=== PATIENT | female | born 1955 | race Caucasian/White ===

== ENCOUNTER 2021-05-09 10:56 | Emergency (ER) | payer MEDICARE, OTHER ==
[2021-05-09 11:23] VITALS: RESP 16; TEMP 97
--- NOTE | 2021-05-09 11:32 | ED ---
General Adult HPI - General Chief complaint: Altered Mental Status Stated complaint: Mental health Time Seen by Provider: 05/09/21 10:58 Source: patient, EMS, RN notes reviewed Mode of arrival: EMS Limitations: no limitations - History of Present Illness Initial comments: This a 65-year-old female presents emergency Department via EMS for psychiatric evaluation. Patient has called 911 several times this week in which police have responded for hallucinations, false complaints. Patient states she called 911 today because her cousin was having a baby in her house. EMS and police arrived and found had no real 7 house. Patient denies any suicidal or homicidal no drug use or use. Patient denies any physical complaints. - Related Data Home Medications Medication Instructions Recorded Confirmed Atorvastatin Calcium [Lipitor] 40 mg PO HS@2100 05/09/21 05/09/21 Brexpiprazole [Rexulti] 2 mg PO HS@2100 05/09/21 05/09/21 Calcium Carbonate/Vitamin D3 1 tab PO BID 05/09/21 05/09/21 [Calcium 600 mg-D3 20 mcg (800 unit)] Carbidopa-Levodopa 25-100 mg 1 tab PO TID@0800,1200,1600 05/09/21 05/09/21 [Sinemet 25-100] Carbidopa-Levodopa 25-100 mg 2 tab PO HS@209905/09/21 05/09/21 [Sinemet 25-100] Clopidogrel Bisulfate [Plavix] 75 mg PO DAILY 05/09/21 05/09/21 DULoxetine HCL [Cymbalta] 120 mg PO DAILY 05/09/21 05/09/21 Ferrous Sulfate [Feosol] 325 mg PO DAILY@1200 05/09/21 05/09/21 Fluticasone Nasal [place] [Flonase 1 spray EA NOSTRIL DAILY PRN 05/09/21 05/09/21 Nasal [place]] Gabapentin [Neurontin] 400 mg PO BID 05/09/21 05/09/21 Loratadine [Claritin] 10 mg PO DAILY 05/09/21 05/09/21 Magnesium Oxide 400 mg PO DAILY@1200 05/09/21 05/09/21 Omeprazole 40 mg PO DAILY 05/09/21 05/09/21 Oxybutynin Chloride 5 mg PO BID 05/09/21 05/09/21 amantadine HCL [Amantadine] 100 mg PO BID 05/09/21 05/09/21 clonazePAM 0.5 mg PO HS 05/09/21 05/09/21 Allergies Allergy/AdvReac Type Severity Reaction Status Date / Time azithromycin Allergy Rash/Hives Verified 05/09/21 11:49 bee venom protein (honey bee) Allergy Swelling Verified 05/09/21 11:49 cephalexin [From Keflex] Allergy Rash/Hives Verified 05/09/21 11:49 codeine Allergy Rash/Hives Verified 05/09/21 11:49 Penicillins Allergy Rash/Hives Verified 05/09/21 11:49 Sulfa (Sulfonamide Allergy Rash/Hives Verified 05/09/21 11:49 Antibiotics) latex AdvReac Rash/Hives Verified 05/09/21 11:49 Review of Systems ROS Statement: Those systems with pertinent positive or pertinent negative responses have been documented in the HPI. ROS Other: All systems not noted in ROS Statement are negative. Past Medical History Past Medical History: Hypertension Additional Past Medical History / Comment(s): parkinsons History of Any Multi-Drug Resistant Organisms: None Reported Past Surgical History: Adenoidectomy, Appendectomy, Cholecystectomy, Hysterectomy, Tonsillectomy Past Psychological History: No Psychological Hx Reported Smoking Status: Never smoker Past Alcohol Use History: None Reported Past Drug Use History: None Reported General Exam Limitations: no limitations General appearance: alert, in no apparent distress Head exam: Present: atraumatic, normocephalic, normal inspection Neck exam: Present: normal inspection, full ROM. Absent: tenderness, meningismus, lymphadenopathy Respiratory exam: Present: normal lung sounds bilaterally. Absent: respiratory distress, wheezes, rales, rhonchi, stridor Cardiovascular Exam: Present: regular rate, normal rhythm, normal heart sounds. Absent: systolic murmur, diastolic murmur, rubs, gallop, clicks Neurological exam: Present: alert, oriented X3 Skin exam: Present: warm, dry, intact, normal color. Absent: rash Course Vital Signs 05/09/21 11:16 Temperature 97 F L Pulse Rate 71 Respiratory 16 Rate Blood Pressure 121/53 O2 Sat by Pulse 95 Oximetry Medical Decision Making - Medical Decision Making Patient was evaluated and case discussed with psychiatrist. Patient is involved with with [facility] team. Patient will be followed up outpatient. Patient is not suicidal or homicidal. Patient was discharged in stable condition. - Lab Data Result diagrams: 05/09/21 11:37 05/09/21 11:37 Lab Results 05/09/21 05/09/21 05/09/21 Range/Units 11:37 11:37 12:17 WBC 3.7 L (3.8-10.6) k/uL RBC 4.59 (3.80-5.40) m/uL Hgb 13.8 (11.4-16.0) gm/dL Hct 43.1 (34.0-46.0) % MCV 93.9 (80.0-100.0) fL MCH 30.1 (25.0-35.0) pg MCHC 32.1 (31.0-37.0) g/dL RDW 14.6 (11.5-15.5) % Plt Count 136 L (150-450) k/uL MPV 9.2 Neutrophils % 66 % Lymphocytes % 18 % Monocytes % 10 % Eosinophils % 2 % Basophils % 1 % Neutrophils # 2.4 (1.3-7.7) k/uL Lymphocytes # 0.7 L (1.0-4.8) k/uL Monocytes # 0.4 (0-1.0) k/uL Eosinophils # 0.1 (0-0.7) k/uL Basophils # 0.0 (0-0.2) k/uL Sodium 143 (137-145) mmol/L Potassium 4.1 (3.5-5.1) mmol/L Chloride 107 (98-107) mmol/L Carbon Dioxide 30 (22-30) mmol/L Anion Gap 6 mmol/L BUN 19 H (7-17) mg/dL Creatinine 1.01 (0.52-1.04) mg/dL Est GFR (CKD-EPI)AfAm 67 (>60 ml/min/1.73 sqM) Est GFR (CKD-EPI)NonAf 58 (>60 ml/min/1.73 sqM) Glucose 97 (74-99) mg/dL Calcium 9.5 (8.4-10.2) mg/dL Total Bilirubin 0.7 (0.2-1.3) mg/dL AST 32 (14-36) U/L ALT 11 (4-34) U/L Alkaline Phosphatase 84 (38-126) U/L Total Protein 6.2 L (6.3-8.2) g/dL Albumin 3.6 (3.5-5.0) g/dL TSH 1.780 (0.465-4.680) mIU/L Urine Color Yellow Urine Appearance Clear (Clear) Urine pH 6.0 (5.0-8.0) Ur Specific [place] 1.024 (1.001-1.035) Urine Protein Trace H (Negative) Urine Glucose (UA) Negative (Negative) Urine Ketones 1+ H (Negative) Urine Blood Negative (Negative) Urine Nitrite Negative (Negative) Urine Bilirubin Negative (Negative) Urine Urobilinogen 2.0 (<2.0) mg/dL Ur Leukocyte Esterase Negative (Negative) Urine Opiates Screen Not Detected (NotDetected) Ur Oxycodone Screen Not Detected (NotDetected) Urine Methadone Screen Not Detected (NotDetected) Ur Propoxyphene Screen Not Detected (NotDetected) Ur Barbiturates Screen Not Detected (NotDetected) U Tricyclic Antidepress Not Detected (NotDetected) Ur Phencyclidine Scrn Not Detected (NotDetected) Ur Amphetamines Screen Not Detected (NotDetected) U Methamphetamines Scrn Not Detected (NotDetected) U Benzodiazepines Scrn Not Detected (NotDetected) Urine Cocaine Screen Not Detected (NotDetected) U Marijuana (THC) Screen Not Detected (NotDetected) Disposition Clinical Impression: Hallucinations, Parkinsons Disposition: HOME SELF-CARE Condition: Stable Instructions (If sedation given, give patient instructions): Hallucinations (ED) Additional Instructions: Please return to the Emergency Department if symptoms worsen or any other concerns. Is patient prescribed a controlled substance at d/c from ED?: No Referrals: Shamar Camarena MD [Primary Care Provider] - 1-2 days Time of Disposition: 14:52
[2021-05-09 11:55] LABS: Basophils % (A) 1 %; Eosinophils # (A) 0.1 k/uL (0-0.7); Eosinophils % (A) 2 %; HCT 43.1 % (34.0-46.0); HGB 13.8 gm/dL (11.4-16.0); Lymphocytes # (A) 0.7 k/uL (1.0-4.8); Lymphocytes % (A) 18 %; MCH 30.1 pg (25.0-35.0); MCHC 32.1 g/dL (31.0-37.0); MCV 93.9 fL (80.0-100.0); Mean Platelet Volume 9.2; Monocytes # (A) 0.4 k/uL (0-1.0); Monocytes % (A) 10 %; Neutrophils # (A) 2.4 k/uL (1.3-7.7); Neutrophils % (A) 66 %; Platelet Count 136 k/uL (150-450); RBC 4.59 m/uL (3.80-5.40); RDW 14.6 % (11.5-15.5); WBC 3.7 k/uL (3.8-10.6)
[2021-05-09 12:12] LABS: Albumin 3.6 g/dL (3.5-5.0); Calcium 9.5 mg/dL (8.4-10.2); Potassium 4.1 mmol/L (3.5-5.1); Total Bilirubin 0.7 mg/dL (0.2-1.3); Total Protein 6.2 g/dL (6.3-8.2)
[2021-05-09 13:37] LABS: Appearance,Urine Clear (Clear); Bilirubin,Urine Negative (Negative); Blood,Urine Negative (Negative); Color,Urine Yellow; Glucose,Urine (UA) Negative (Negative); Ketones,Urine 1+ (Negative); Leukocyte Esterase,Urine Negative (Negative); Nitrite,Urine Negative (Negative); Protein,Urine Trace (Negative); Specific Gravity,Urine 1.024 (1.001-1.035)
[2021-05-09 13:48] LABS: Amphetamine Screen,Urine Not Detected (NotDetected); Barbiturate Screen,Urine Not Detected (NotDetected); Benzodiazepines Screen,Urine Not Detected (NotDetected); Cocaine Screen,Urine Not Detected (NotDetected); Methadone Screen, Urine Not Detected (NotDetected); Opiate Screen,Urine Not Detected (NotDetected); Oxycodone Screen, Urine Not Detected (NotDetected); Phencyclidine Screen,Urine Not Detected (NotDetected); Tricyclic Antidepressant,Urine Not Detected (NotDetected); Urn Cannabinoid Scrn Not Detected (NotDetected)
[2021-05-09 16:40] VITALS: BP 119/75; PULSE 87
== END 2021-05-09 16:51 | disposition home or self-care (01) ==
LOC: EC 10:56
DX: G20 Parkinson's disease (principal); R44.3 Hallucinations, unspecified; I10 Essential (primary) hypertension; Z88.0 Allergy status to penicillin
CPT/HCPCS: 36415; 80053; 80306; 81003; 82075; 84443; 85025; 99285

== ENCOUNTER → 2021-07-20 | Outpatient (CLI) | payer MEDICARE, OTHER ==
[2021-07-20 10:45] VITALS: BP 128/77; PULSE 73; RESP 18; TEMP 97.9
--- NOTE | 2021-07-20 11:16 | P.PAINCN ---
History of Present Illness - Reason for Consult Consult date: 07/20/21 - History of Present Illness This 66 years old female with a chronic history of severe low back pain, started 2 years ago the pain is constant increases with any activity interfere with the quality of life, she denies any initiating event, no history of trauma or heavy lifting,no history of falling , the pain is constant localized in the low back area with radiation to the posterior aspect of the lower extremity bilaterally, she denies any motor or sensory deficit, no change in the bowel movement or urination, patient tried physical therapy last year without any benefit, she tried the Tylenol and and she is currently on Neurontin 400 mg twice a day and Cymbalta 120 daily without any significant improvement of her pain level Past Medical History Past Medical History: Hypertension, Musculoskeletal Disorder, Osteoarthritis (OA), Renal Disease Additional Past Medical History / Comment(s): parkinsons, decreased kidney function, sees Dr. Storey, herniated disc History of Any Multi-Drug Resistant Organisms: None Reported Past Surgical History: Adenoidectomy, Appendectomy, Cholecystectomy, Hysterecto my, Tonsillectomy Past Anesthesia/Blood Transfusion Reactions: Previous Problems w/ Anesthesia Additional Past Anesthesia/Blood Transfusion Reaction / Comm: one time episode of very slow to come out of anesthesia Smoking Status: Former smoker Medications and Allergies Home Medications Medication Instructions Recorded Confirmed Type Calcium Carbonate/Vitamin D3 1 tab PO BID 05/09/21 07/15/21 History [Calcium 600 mg-D3 20 mcg (800 unit)] DULoxetine HCL [Cymbalta] 120 mg PO DAILY 05/09/21 07/15/21 History Ferrous Sulfate [Feosol] 325 mg PO DAILY@1200 05/09/21 07/15/21 History Fluticasone Nasal [place] [Flonase 1 spray EA NOSTRIL DAILY PRN 05/09/21 07/15/21 History Nasal [place]] Gabapentin [Neurontin] 400 mg PO BID 05/09/21 07/15/21 History Loratadine [Claritin] 10 mg PO DAILY 05/09/21 07/15/21 History Magnesium Oxide 400 mg PO DAILY@1200 05/09/21 07/15/21 History Omeprazole 40 mg PO DAILY 05/09/21 07/15/21 History Oxybutynin Chloride 5 mg PO BID 05/09/21 07/15/21 History amantadine HCL [Amantadine] 100 mg PO BID 05/09/21 07/15/21 History clonazePAM 0.5 mg PO HS 05/09/21 07/15/21 History Atorvastatin [Lipitor] 40 mg PO DAILY 07/20/21 07/20/21 History Allergies Allergy/AdvReac Type Severity Reaction Status Date / Time azithromycin Allergy Rash/Hives Verified 07/15/21 13:31 bee venom protein (honey bee) Allergy Swelling Verified 07/15/21 13:31 cephalexin [From Keflex] Allergy Rash/Hives Verified 07/15/21 13:31 codeine Allergy Rash/Hives Verified 07/15/21 13:31 Penicillins Allergy Rash/Hives Verified 07/15/21 13:31 Sulfa (Sulfonamide Allergy Rash/Hives Verified 07/15/21 13:31 Antibiotics) latex AdvReac Rash/Hives Verified 07/15/21 13:31 Physical Exam Vitals: Vital Signs Temp Pulse Resp BP Pulse Ox 07/20/21 10:40 97.9 F 73 18 128/77 96 Physical Examinations : -Constitutiona : Cooperative , not in acute distress . -HEENT : nech : supple , no Lymphadenopathy , normal thyroid size . : eyes : no ptosis , no icterus, no photophobia . - neurologic : Cranial nerve II to XII intact , no focal neurological deffecit . -psychatric : alert , oriented X 3 , appropriate affect , intact judgment and insight . -Lymphatic : no Lymphadenopathy . - musculoskeltal : Lumber spine moter stegnth lower extremities ,thigh and legs 5/5 Right side , 5/5 Left side deep tendon reflexes : normal Knee Jerk , normal ankle Jerk lumber facet Loading Test =positive R ight , positive Left Range of motion of the lumbar spine Flexion 30 degrees, extension 10 degrees strait leg raising test = positive at 30 degree Fabere test= positive Right , and positive LT . tenderness over the Sacroiliac joint on the Right , and Left sides Results Comments: MRI of the lumbar spine done at [facility] showed multilevel lumbar degenerative disc disease and multilevel lumbar spondylosis with lumbar facet arthropathy Assessment and Plan Plan: Assessment and plan=1-lumbar spondylosis with lumbar facet arthropathy without myelopathy. 2-lumbar degenerative disc disease. Patient will be good candidate to have diagnostic medial branch block lumbar area at L3 ,L4 ,L5 (for L4-5, and L5-S1 ) And if she has a good result to proceed with RFA Time with Patient: Greater than 30 PQRS Measure Charge Sheet Measure #130: Documentation of Current Meds in Medical Chart: Patient's medications documented in chart Measure #226: Tobacco Use: Screen & Cessation Intervention: Pt not a tobacco user Measure #111: Pneumonia Vaccination: Pneumococcal vaccine administered or previously received Measure #47: Advance Care Plan: Advance care planning discussed & documented, pt chose/unable to give Measure #412: Opioid Treatment Agreement: No documentation of signed opioid treatment agreement Measure #408: Opioid Therapy Follow-up Evaluation: Patient had NO f/u eval minimum every 3 months during opioid therapy Measure #317: Preventitive Care & Scrn High Bld Press & F/U: Normal blood pressure, f/u not required Measure #128: Body Mass Index (BMI) Screening & Follow-up: BMI documented ABOVE normal parameters - f/u documented Measure #131: Pain Assessment & Follow-up: Pain positive & plan documented, Follow-up scheduled Measure #431: Unhealthy Alcohol Use Preventative Care & Scrn: Patient not identified as an unhealthy alcohol user Mode of Arrival: Walker - Pain Location None Non-Pharmacological Interventions: Inactivity, Physical Therapy, Sitting Pharmacological Interventions: PRN Medication PQRS Narrative: Blood Pressure 128/77 Pain Intensity [None] 9 Scale Used Numeric (1 - 10) Hx Alcohol Use (MH) No Home Medications: Ambulatory Orders Calcium Carbonate/Vitamin D3 [Calcium 600 mg-D3 20 mcg (800 unit)] 1 tab PO BID 05/09/21 DULoxetine HCL [Cymbalta] 120 mg PO DAILY 05/09/21 Ferrous Sulfate [Feosol] 325 mg PO DAILY@1200 05/09/21 Fluticasone Nasal [place] [Flonase Nasal [place]] 1 spray EA NOSTRIL DAILY PRN 05/09/21 Gabapentin [Neurontin] 400 mg PO BID 05/09/21 Loratadine [Claritin] 10 mg PO DAILY 05/09/21 Magnesium Oxide 400 mg PO DAILY@1200 05/09/21 Omeprazole 40 mg PO DAILY 05/09/21 Oxybutynin Chloride 5 mg PO BID 05/09/21 amantadine HCL [Amantadine] 100 mg PO BID 05/09/21 clonazePAM 0.5 mg PO HS 05/09/21 Atorvastatin [Lipitor] 40 mg PO DAILY 07/20/21
== END | disposition home or self-care (01) ==
LOC: PNWHC3 10:31
PROVIDERS: ATTEND Specialist
DX: M54.16 Radiculopathy, lumbar region (principal)
CPT/HCPCS: 99211

== ENCOUNTER → 2021-09-14 | Outpatient (CLI) | payer MEDICARE, OTHER ==
--- NOTE | 2021-09-15 12:24 | NM ---
EXAMINATION TYPE: NM DatScan Brain SPECT DATE OF EXAM: 09/14/2021 COMPARISON: NONE HISTORY: Parkinson's disease TECHNIQUE: 10 drops of Lugol's solution was administered 1 hour prior to injection as a thyroid bloc marco agent. After the administration of 4.9 mCi I-123 Ioflupane DaTscan. Images obtained [address] injection. SPECT images of the brain were acquired with axial and coronal reconstructions. FINDINGS: The axial SPECT images demonstrate symmetric background activity and symmetric comma-shaped activity within the bilateral striata. IMPRESSION: No diagnostic evidence of Parkinson's disease.
== END | disposition home or self-care (01) ==
LOC: RADNMMAIN 10:42
PROVIDERS: ATTEND Psychiatry & Neurology Neurology
DX: G20 Parkinson's disease (principal)
CPT/HCPCS: 78803; A9584

== ENCOUNTER → 2021-10-14 | Day surgery (SDC) | payer MEDICARE, OTHER ==
[2021-08-31 10:26] VITALS: BMI 38.9
[~2021-10-14] MED LIST: LACTATED RINGERS 1,000 ML IV ONE; LACTATED RINGERS 1,000 ML IV SCH; MIDAZOLAM 2 MG/2 ML VIAL ONE; ROPIVACAINE 5MG/ML 20ML VIAL ONE; fentaNYL (PF) 50 MCG/ML 2 ML AMP ONE; methylPREDNISolone ACETATE 40 MG/ML 1 ML VIAL ONE
[2021-10-14 11:52] VITALS: TEMP 97.3
--- NOTE | 2021-10-14 12:35 | P.PCN ---
Date of Procedure: 10/14/21 Procedure(s) Performed: PREOPERATIVE DIAGNOSIS : 1- Lumbar spondylosis with Facet Arthropathy without myelopathy . 2- Lumber degenerative disc disease POSTOPERATIVE DIAGNOSIS: 1- Lumbar spondylosis with Facet Arthropathy without myelopathy . 2- Lumber degenerative disc disease PROCEDURE: Diagnostic bilateral L3 , L4 , and L5 medial branch block under fluoroscopy guidance(fluoroscopy images available in the radiology Department ) ( To target the facet joint between Bilateral L4-5 , and L5-S1 )# 1st ANESTHESIA:, monitered anesthesia care ,as per anesthesia department.. EBL: Minimal COMPLICATION: None PROCEDURE INDICATION: Chronic low back pain secondary to Facet arthropathy unresponsive to conservative treatment. PROCEDURE DESCRIPTION: the patient was seen and identified in the preop holding area , risks and benefits and possible complications of the procedure and alternative were discussed with the patient, and the patient agreed to proceed with the procedure and signed the consent and vital signs monitored during the procedure and fluoroscopy was used to maximize the benefit and accuracy of the needle placement, and sedation was given to decrease patient anxiety, patient was taken to the procedure room and placed in prone position vital signs monitored in the back prepped with chlorhexidine X3 then under strict sterile technique using a right oblique fluoroscopy ,the junction of the transverse process and the superior articulating process of the right L3 , L4 , and L5 vertebra which corresponding to the fluoroscopy image of the eye of the Jason dog on the block side for the medial branches and subsequently , after local infiltration of skin and subcu tissuies with Ropivacaine 0.5 % , one mL at each level ,then 22-gauge 5 inches , Quincke-type needles , 3 needle was used , each one of them placed at the junction of the base of the transverse process and the superior articular process at the appropriate level, and the needle was advanced until the periosteum contacted, needle placement confirmed with AP oblique and lateral view and after appropriate needle placement confirmed, and after negative aspiration for heme and CSF and there was no paresthesia 1-1/2 mL of Ropivacaine 0.5% mixed with 40 mg Depo-Medrol , then half mL injected at each level after negative aspiration the needle subsequently removed and the same procedure repeated for the left side at left side at L3 , L4 and L5 levels. At the end of the procedure and the needles removed and a bandage applied after the skin was cleaned the cleaning solution patient taken to recovery room in stable condition and monitors in the recovery room for 20-30 minutes and discharged home in stable condition after discharge criteria met and patient will follow up with the pain clinic in 2-4 weeks
--- NOTE | 2021-10-14 12:44 | FL ---
EXAMINATION TYPE: FL guided pain mgmt statistic DATE OF EXAM: 10/14/2021 HISTORY: Fluoroscopy time 12 seconds of fluoroscopy provided. IMPRESSION: 1. Fluoroscopy time.
[2021-10-14 13:02] VITALS: BP 124/75; PULSE 75; RESP 17
== END ==
LOC: ORPAIN 11:14
PROVIDERS: ATTEND Specialist
DX: M47.26 Other spondylosis with radiculopathy, lumbar region (principal); M51.36 Other intervertebral disc degeneration, lumbar region
CPT/HCPCS: 64493; 64494; J2250; J1030; J3010; J2795

== ENCOUNTER → 2021-11-09 | Outpatient (CLI) | payer MEDICARE, OTHER ==
[2021-11-09 14:11] VITALS: BP 143/66; PULSE 82; RESP 18
--- NOTE | 2021-11-09 15:22 | P.PN ---
Subjective Progress Note Date: 11/09/21 Principal diagnosis: A 66 yr old female with a history of severe and chronic low back pain secondary to lumbar degenerative disc diseases, lumbar spondylosis, canal stenosis, disc protrusions, anterolisthesis and neuroforaminal stenoses with facet arthropathy presents today for follow up of MBBs of the BL L4-L5, L5-S1. Pt felt > 75% pain relief with this series but the pain had started to return after 3 weeks. Pain level is currently at 9 /10. Pain is dull/ achy/ throbbi ng/ constant in the mid to lower lumbar spine but sometimes sharp/ shooting towards the right hip. Pain is provoked by any type of fast movements. Pain is alleviated with medications, rest, repositioning and sitting upright. Pt admits she has used cannabis but also wants to manage her pain with medications other than the Tylenol she uses over the counter. Interventional pain procedures completed include BL L4-L5, L5-S1 on Aug, 2021 Patient is currently on Tylenol ARIANE Patient denies any side effects of the medication(s), denies excessive drowsiness or sleepiness, denies suicidal ideation and reports that the current pain medication is helping to control the pain and improve activities of daily living. Patient denies any motor or sensory deficits. Patient denies any fever or night sweats, denies any change in the bowel movements or urination. Physical Examination: -Constitutional: Cooperative. Not in acute distress . -HEENT: Neck is supple. No lymphadenopathy. No thyromegaly. Normal thyroid size. Eyes: No ptosis , no icterus, no photophobia. ENT: No auditory deficits. Normal oropharynx. No Thrush. - Respiratory: Chest clear to auscultations bilaterally. No wheezing. No rhonchi. - Cardiovascular: Regular rate and rhythm. S1 / S2 , no S3 , no S4. - Gastrointestinal: Abdomen soft no tenderness. Bowel sounds positive in all four quadrants. No organomegaly. - Genitourinary: Deferred. - Neurologic: Cranial nerve II to XII intact. No focal neurological deficits. - Psychatric: Alert & oriented x 3. Matching mood & appropriate affect. Judgment and insight intact. - Lymphatic: No Lymphadenopathy. - Musculoskeletal: Cervical spine: Muscle bulk/ tone/ strength in the bilateral upper extremities normal. Facet loading test cervical area positive. Lumbar spine: Motor bulk/ tone/ strength lower extremities , thigh and legs : 5/5 Deep tendon reflexes : Normal Knee Jerk. Normal Ankle Jerk . Lumbar Facet Loading Test positive Straight Leg Raise: positive at 30 degree right side/ left side Gaenslen's test positive Andreas test: positive right side / left side Range of motion: Flexion of the lumbar spine <60 degrees Range of motion: Extension of the lumbar spine <20 degrees Severe tenderness over the Sacroiliac joint: right side / left side Assessment and plan: Chronic low back pain secondary to umbar degenerative disc diseases, caro mbar spondylosis, canal stenosis, disc protrusions, anterolisthesis and neuroforaminal stenoses with facet arthropathy Recommendation of 2nd BL MBB of L4-L5, L5-S1 Risks/ benefits discussed and pt verbalized understanding Denies use of aspirin or other anticoagulants All patient questions answered MAPS reviewed and it was appropriate. Prescription filled for Naproxen 500mg BIDWM prn pain. Discussed use, side effects, adverse reactions. I have spent 31 minutes on patient care today. Dr Brandon was available by phone for the evaluation of this patient. The time was used to review the medical records including relevant urine studies and Prescription history (MAPs), review of the available imaging, evaluation and examination of the patient, coordination of care with the medical staff and if applicable referring physicians, as well as creation of the medical record Objective - Vital Signs Vital signs: Vital Signs Temp Pulse 82 11/09/21 14:06 Resp 18 11/09/21 14:06 BP 143/66 11/09/21 14:06 Pulse Ox 95 11/09/21 14:06 PQRS Measure Charge Sheet Mode of Arrival: Ambulatory - Pain Location Right Lower Back Non-Pharmacological Interventions: Inactivity, Position/Reposition, Sitting Pharmacological Interventions: PRN Medication PQRS Narrative: Blood Pressure 143/66 Pain Intensity [Right Lower 9 Back] Scale Used Numeric (1 - 10) Hx Alcohol Use (MH) No Home Medications: Ambulatory Orders Calcium Carbonate/Vitamin D3 [Calcium 600 mg-D3 20 mcg (800 unit)] 1 tab PO BID 05/09/21 DULoxetine HCL [Cymbalta] 60 mg PO BID 05/09/21 Ferrous Sulfate [Feosol] 325 mg PO DAILY@1200 05/09/21 Fluticasone Nasal [place] [Flonase Nasal [place]] 1 spray EA NOSTRIL DAILY PRN 05/09/21 Gabapentin [Neurontin] 400 mg PO TID 05/09/21 Loratadine [Claritin] 10 mg PO DAILY 05/09/21 Magnesium Oxide 400 mg PO DAILY@1200 05/09/21 Omeprazole 40 mg PO DAILY 05/09/21 Oxybutynin Chloride 5 mg PO BID 05/09/21 amantadine HCL [Amantadine] 100 mg PO BID 05/09/21 clonazePAM 0.5 mg PO HS 05/09/21 Atorvastatin [Lipitor] 40 mg PO DAILY 07/20/21
== END | disposition home or self-care (01) ==
LOC: PNWHC3 12:32
PROVIDERS: ATTEND Physician Assistant Medical
DX: M47.896 Other spondylosis, lumbar region (principal); M51.36 Other intervertebral disc degeneration, lumbar region; M48.061 Spinal stenosis, lumbar region without neurogenic claudication
CPT/HCPCS: 99211

== ENCOUNTER 2021-12-23 10:45 | Day surgery (SDC) | payer MEDICARE, OTHER ==
[2021-12-22 11:37] VITALS: BMI 40.7
[2021-12-23] MEDS ORDERED: LACTATED RINGERS 1,000 ML IV ONE (11:30)
[2021-12-23 11:33] VITALS: RESP 16; TEMP 97.1
[2021-12-23] MEDS ORDERED: fentaNYL (PF) 50 MCG/ML 2 ML AMP ONE (12:02)
[2021-12-23] MEDS ORDERED: MIDAZOLAM 2 MG/2 ML VIAL ONE (12:02)
[2021-12-23] MEDS ORDERED: ROPIVACAINE 5MG/ML 20ML VIAL ONE (12:06)
[2021-12-23] MEDS ORDERED: methylPREDNISolone ACETATE 40 MG/ML 1 ML VIAL ONE (12:06)
--- NOTE | 2021-12-23 12:26 | P.PCN ---
Date of Procedure: 12/23/21 Procedure(s) Performed: PREOPERATIVE DIAGNOSIS : 1- Lumbar spondylosis with Facet Arthropathy without myelopathy . 2- Lumber degenerative disc disease POSTOPERATIVE DIAGNOSIS: 1- Lumbar spondylosis with Facet Arthropathy without myelopathy . 2- Lumber degenerative disc disease PROCEDURE: Diagnostic bilateral L3 , L4 , and L5 medial branch block under fluoroscopy guidance(fluoroscopy images available in the radiology Department ) ( To target the facet joint between Bilateral L4-5 , and L5-S1 )# 2nd ANESTHESIA:, monitered anesthesia care ,as per anesthesia department.. EBL: Minimal COMPLICATION: None PROCEDURE INDICATION: Chronic low back pain secondary to Facet arthropathy unresponsive to conservative treatment. PROCEDURE DESCRIPTION: the patient was seen and identified in the preop holding area , risks and benefits and possible complications of the procedure and alternative were discussed with the patient, and the patient agreed to proceed with the procedure and signed the consent and vital signs monitored during the procedure and fluoroscopy was used to maximize the benefit and accuracy of the needle placement, and sedation was given to decrease patient anxiety, patient was taken to the procedure room and placed in prone position vital signs monitored in the back prepped with chlorhexidine X3 then under strict sterile technique using a right oblique fluoroscopy ,the junction of the transverse process and the superior articulating process of the right L3 , L4 , and L5 vertebra which corresponding to the fluoroscopy image of the eye of the Jason dog on the block side for the medial branches and subsequently , after local infiltration of skin and subcu tissuies with Ropivacaine 0.5 % , one mL at each level ,then 22-gauge 5 inches , Quincke-type needles , 3 needle was used , each one of them placed at the junction of the base of the transverse process and the superior articular process at the appropriate level, and the needle was advanced until the periosteum contacted, needle placement confirmed with AP oblique and lateral view and after appropriate needle placement confirmed, and after negative aspiration for heme and CSF and there was no paresthesia 1-1/2 mL of Ropivacaine 0.5% mixed with 20 mg Depo-Medrol , then half mL injected at each level after negative aspiration the needle subsequently removed and the same procedure repeated for the left side at left side at L3 , L4 and L5 levels. At the end of the procedure and the needles removed and a bandage applied after the skin was cleaned the cleaning solution patient taken to recovery room in stable condition and monitors in the recovery room for 20-30 minutes and discharged home in stable condition after discharge criteria met and patient will follow up with the pain clinic in 2-4 weeks
[2021-12-23] MEDS ORDERED: IV FLUID CONTINUATION 1,000 ML IV ONE (12:30)
--- NOTE | 2021-12-23 12:37 | FL ---
Fluoroscopy HISTORY: Pain 23 seconds fluoroscopy time supplied to the referring clinician. 4 intraoperative C-arm images docum ent the procedure. See dictated report from anesthesia.
[2021-12-23 12:51] VITALS: BP 121/86; PULSE 55
== END 2021-12-23 13:13 | disposition home or self-care (01) ==
LOC: ORPAIN 10:45
PROVIDERS: ATTEND Specialist
DX: G89.29 Other chronic pain (principal); M47.816 Spondylosis without myelopathy or radiculopathy, lumbar region; M51.36 Other intervertebral disc degeneration, lumbar region; I10 Essential (primary) hypertension; E78.5 Hyperlipidemia, unspecified; Z87.891 Personal history of nicotine dependence; G20 Parkinson's disease; K21.9 Gastro-esophageal reflux disease without esophagitis; Z79.899 Other long term (current) drug therapy; Z90.710 Acquired absence of both cervix and uterus; Z97.2 Presence of dental prosthetic device (complete) (partial); Z88.5 Allergy status to narcotic agent; Z88.0 Allergy status to penicillin; Z88.2 Allergy status to sulfonamides; Z88.8 Allergy status to other drugs, medicaments and biological substances; Z88.1 Allergy status to other antibiotic agents; Z91.040 Latex allergy status
CPT/HCPCS: 64493; 64494; J2250; J1030; J3010; J2795

== ENCOUNTER → 2022-01-26 | Outpatient (CLI) | payer MEDICARE, OTHER ==
--- NOTE | 2022-01-26 11:05 | P.PN ---
Subjective Progress Note Date: 01/26/22 Principal diagnosis: A 66 yr old female with a history of severe and chronic low back pain secondary to lumbar degenerative disc diseases and lumbar spondylosis with facet arthropathy presents today for evaluation status post facet blocks and medial branches BL L4-L5, L5-S1 #2. She states she experienced 90% pain relief status post procedure. Pain level is 9 out of 10 in intensity because she is counting her bilateral hip pain. Pain is dull/ achy/ constant with occasional radiation of lower back pain down the lower extremities bilaterally. Pain is provoked by walking for periods of 10 minutes or more. Pain is alleviated with injections and rest. Interventional pain procedures completed include facet blocks of the medial branches L4-L5, L5-S1 #2 Patient is currently on Neurontin Patient denies any side effects of the medication(s), denies excessive drowsiness or sleepiness, denies suicidal ideation and reports that the current pain medication is helping to control the pain and improve activities of daily living. Patient denies any motor or sensory deficits. Patient denies any fever or night sweats, denies any change in the bowel movements or urination. Physical Examination: -Constitutional: Cooperative. Not in acute distress . -HEENT: Neck is supple. No lymphadenopathy. No thyromegaly. Normal thyroid size. Eyes: No ptosis , no icterus, no photophobia. ENT: No auditory deficits. Normal oropharynx. No Thrush. - Respiratory: Chest clear to auscultations bilaterally. No wheezing. No rhonchi. - Cardiovascular: Regular rate and rhythm. S1 / S2 , no S3 , no S4. - Gastrointestinal: Abdomen soft no tenderness. Bowel sounds positive in all four quadrants. No organomegaly. - Genitourinary: Deferred. - Neurologic: Cranial nerve II to XII intact. No focal neurological deficits. - Psychatric: Alert & oriented x 3. Matching mood & appropriate affect. Judgment and insight intact. - Lymphatic: No Lymphadenopathy. - Musculoskeletal: Cervical spine: Muscle bulk/ tone/ strength in the bilateral upper extremities normal. Facet loading test cervical area positive. Lumbar spine: Motor bulk/ tone/ strength lower extremities , thigh and legs : 5/5 Deep tendon reflexes : Normal Knee Jerk. Normal Ankle Jerk . Vertebral body tenderness to palpation over Lumbar Facet Loading Test positive BL L4-L5, L5-S1 Straight Leg Raise: positive at 30 degrees right side/ left side Gaenslen's Test positive Sacral spine : Severe tenderness over the Sacroiliac joint: right side / left side Range of motion: Flexion of the lumbar spine <60 degrees Range of motion: Extension of the lumbar spine <20 degrees Gaenslen's Test positive Andreas test: positive right side / left side Assessment and plan: Chronic low back pain secondary to lumbar degenerative disc disease , lumbar spondylosis with facet arthropathy without myelopathy Recommendation of RFA of bilateral L4-L5 and L5-S1. 6, benefits of procedure discussed and patient verbalized understanding. Denies anticoagulant use. Denies medical history of diabetes. All patient questions answered MAPS reviewed and it was appropriate. I have spent 31 minutes on patient care today. Dr Brandon was available by phone for the evaluation of this patient. The time was used to review the medical records including relevant urine studies and Prescription history (MAPs), review of the available imaging, evaluation and examination of the patient, coordination of care with the medical staff and if applicable referring physicians, as well as creation of the medical record PQRS Measure Charge Sheet PQRS Narrative: Pain Intensity [Lower Back] 9 Scale Used Numeric (1 - 10) Hx Alcohol Use (MH) No Home Medications: Ambulatory Orders Calcium Carbonate/Vitamin D3 [Calcium 600 mg-D3 20 mcg (800 unit)] 1 tab PO BID 05/09/21 DULoxetine HCL [Cymbalta] 60 mg PO QAM 05/09/21 Ferrous Sulfate [Feosol] 325 mg PO DAILY@119905/09/21 Fluticasone Nasal [place] [Flonase Nasal [place]] 1 spray EA NOSTRIL DAILY PRN 05/09/21 Gabapentin [Neurontin] 400 mg PO TID 05/09/21 Magnesium Oxide 400 mg PO DAILY@1200 05/09/21 Oxybutynin Chloride 5 mg PO BID 05/09/21 amantadine HCL [Amantadine] 100 mg PO BID 05/09/21 clonazePAM 0.5 mg PO HS 05/09/21 DULoxetine HCL [Cymbalta] 120 mg PO HS 01/24/22
[2022-01-26 11:10] VITALS: BP 161/80; PULSE 66; RESP 18; TEMP 97.6
== END | disposition home or self-care (01) ==
LOC: PNWHC3 10:45
PROVIDERS: ATTEND Anesthesiology
DX: M47.896 Other spondylosis, lumbar region (principal); M51.36 Other intervertebral disc degeneration, lumbar region
CPT/HCPCS: 99211